=== PATIENT | male | born 1995 | race Asian ===

== ENCOUNTER 2018-03-06 19:25 | Emergency (ER) | payer MEDICAID ==
[~2018-03-06] VITALS: Ht 185.4 cm; Wt 68.0 kg
[2018-03-06 20:17] VITALS: BP 150/101
[2018-03-06] MEDS ORDERED: Acetaminophen 500mg (ES) tab ORAL ONE (20:30)
[2018-03-06] MEDS ORDERED: IBUPROFEN600 MG ORAL (20:48)
[2018-03-06 21:07] VITALS: BP 150/101
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
== END 2018-03-06 21:07 | disposition home or self-care (01) ==
LOC: EMR 19:53
DX: S00.81XA Abrasion of other part of head, initial encounter (principal); S20.319A Abrasion of unspecified front wall of thorax, initial encounter; V43.62XA Car passenger injured in collision with other type car in traffic accident, initial encounter; Y92.410 Unspecified street and highway as the place of occurrence of the external cause
CPT/HCPCS: 99282

== ENCOUNTER 2018-05-09 00:07 | Emergency (ER) | payer MEDICAID ==
[~2018-05-09] VITALS: Ht 185.4 cm; Wt 68.0 kg
[~2018-05-09 00:07] MED LIST: IBUPROFEN600 MG ORAL
[2018-05-09] MEDS ORDERED: NKM (00:18)
[2018-05-09 00:21] VITALS: BP 135/89
[2018-05-09] MEDS ORDERED: BUSPAR10 MG ORAL (00:39)
--- NOTE | 2018-05-09 00:39 | Emergency Room Report ---
History of Present Illness General Chief Complaint: Palpitations Source: Patient Present Illness HPI This a 23-year-old [place] male with no past medical history. He presents with chief complaint of palpitation. Onset was acute. He felt his heart beating fast. No chest pain. No nausea vomiting. No syncopal. This has been an on and off problem for the last 2 months. Worse when he gets stressed out. No fever chills but no drug use. No nausea no vomiting. No other complaint. Allergies: Coded Allergies: No Known Allergies (Unverified , 03/06/18) Patient History Past Medical History: none, see triage record, old chart reviewed Past Surgical History: none Pertinent Family History: none Social History: Denies: smoking Immunizations: other Reviewed Nursing Documentation: PMH: Agreed; PSxH: Agreed Nursing Documentation-PMH Past Medical History: No Stated History Review of Systems Eye: Denies: eye pain, blurred vision ENT: Denies: ear pain, nose congestion, throat swelling Respiratory: Denies: cough, shortness of breath Cardiovascular: Reports: palpitations; Denies: chest pain Gastrointestinal: Denies: abdominal pain, diarrhea, nausea, vomiting Musculoskeletal: Denies: back pain, joint pain Skin: Denies: rash Neurological: Denies: headache, numbness Endocrine: Denies: increased thirst, increased urine Hematologic/Lymphatic: Denies: easy bruising All Other Systems: negative except mentioned in HPI Physical Exam Vital Signs Date Time Temp Pulse Resp B/P (MAP) Pulse Ox O2 Delivery O2 Flow Rate FiO2 05/09/18 00:15 98.2 96 16 147/98 99 Room Air vitals with high blood pressure Sp02 EP Interpretation: reviewed, normal General Appearance: well appearing, no apparent distress, alert Head: normocephalic, atraumatic Eyes: bilateral eye PERRL, bilateral eye EOMI ENT: hearing grossly normal, normal pharynx Neck: full range of motion, supple, no meningismus Respiratory: chest non-tender, lungs clear, normal breath sounds Cardiovascular #1: regular rate, rhythm, no murmur Gastrointestinal: normal bowel sounds, non tender, no mass, no organomegaly, no bruit, non-distended Musculoskeletal: back normal, gait/station normal, normal range of motion Psychiatric: anxious Skin: warm/dry Medical Decision Making Diagnostic Impression: Primary Impression: Palpitations Additional Impression: Panic attack ER Course Patient with anxiety causing his palpitation. No evidence of ACS, PE, dissection to name a few. May need Holter monitor. We'll discharge home. EKG Diagnostic Results Rate: normal Rhythm: NSR ST Segments: no acute changes Rhythm Strip Diag. Results Rhythm Strip Time: 00:38 EP Interpretation: yes Rate: 85 Rhythm: NSR, no PVC's, no ectopy Last Vital Signs Date Time Temp Pulse Resp B/P (MAP) Pulse Ox O2 Delivery O2 Flow Rate FiO2 05/09/18 00:21 98.2 88 18 135/89 99 Room Air Status: improved Disposition: HOME, SELF-CARE Condition: Stable Scripts Buspirone Hcl* (BUSPAR*) 10 Mg Tablet 10 MG ORAL THREE TIMES A DAY, #30 TAB 0 Refills Prov: Norberto Queen MD 05/09/18 Patient Instructions: Panic Attacks Additional Instructions: Follow-up with your doctor as scheduled. You may need a Holter monitor and/or referral to see a retail operations specialist. Return if worse. Norberto Queen MD May 09, 2018 00:39
[2018-05-09] MEDS ORDERED: LORazepam 1mg tab ORAL ONE (00:45)
[2018-05-09 00:47] VITALS: BP 135/89
== END 2018-05-09 00:50 | disposition home or self-care (01) ==
LOC: EMR 00:39
DX: F41.0 Panic disorder [episodic paroxysmal anxiety] (principal); R00.2 Palpitations
CPT/HCPCS: 93005; 99283

== ENCOUNTER 2018-07-04 12:52 | Emergency (ER) | payer MEDICAID ==
[~2018-07-04] VITALS: Ht 185.4 cm; Wt 68.0 kg
[~2018-07-04 12:52] MED LIST changes: +BUSPAR10 MG ORAL; +NKM
[2018-07-04 13:11] VITALS: BP 132/87
--- NOTE | 2018-07-04 13:16 | Emergency Room Report ---
History of Present Illness General Chief Complaint: Eye Problems Source: Patient Present Illness HPI 23-year-old male with history of recurrent migraine headache here complaining of one month of photophobia and the aura on the left eye without headache. Patient went to an police manager to weeks ago and was treated with tobramycin dexamethasone eyedrops for possible infection. According to patient police manager ruled out macular degeneration and all other etiologies related to the eye. Patient was first diagnosed with migraine headache a few years ago and has not been taking any medication other than Excedrin. Patient complains of continuous photophobia and less I, and aorta however denies headache, dizziness, nausea vomiting. Patient denies any head injury. He further complains of increased sense of smell. Denies loss of consciousness, syncope, vertigo, rhinorrhea, ear pain, tinnitus, chest pain, palpitation, shortness of breath and pulmonary associates symptoms. PT also has history of anxiety however does not take any medication for anxiety denies SI and HI Allergies: Coded Allergies: No Known Allergies (Unverified , 03/06/18) Patient History Past Medical History: see triage record Past Surgical History: unable to obtain Pertinent Family History: none Immunizations: UTD Reviewed Nursing Documentation: PMH: Agreed; PSxH: Agreed Nursing Documentation-PMH Past Medical History: No Stated History Review of Systems All Other Systems: negative except mentioned in HPI Physical Exam Vital Signs Date Time Temp Pulse Resp B/P (MAP) Pulse Ox O2 Delivery O2 Flow Rate FiO2 07/04/18 12:54 98.2 99 20 144/93 99 Room Air Sp02 EP Interpretation: reviewed, normal General Appearance: normal inspection, well appearing, no apparent distress, alert, GCS 15 Head: normocephalic, atraumatic Eyes: left eye photophobia; bilateral eye normal inspection, bilateral eye PERRL ENT: normal ENT inspection, hearing grossly normal, normal pharynx, no angioedema, normal voice Neck: normal inspection, supple Respiratory: normal inspection, chest non-tender, normal breath sounds, no rhonchi, no wheezing Cardiovascular #1: normal inspection, regular rate, rhythm, no gallop Gastrointestinal: normal inspection, non tender, soft Genitourinary: no CVA tenderness Musculoskeletal: normal inspection, back normal, digits/nails normal Neurologic: normal inspection, alert, oriented x3, responsive, orthopedic specialist III-XII nml as tested Psychiatric: normal inspection, judgement/insight normal, memory normal Skin: normal inspection, normal color, no rash, warm/dry Lymphatic: normal inspection, no adenopathy Medical Decision Making PA Attestation all diagnoses and treatment plans were reviewed and discussed with my supervising physician Dr. Bolaños Diagnostic Impression: Primary Impression: Migraine aura without headache Additional Impression: Photophobia of left eye ER Course 23-year-old male with history of recurrent migraine headache here complaining of one month of photophobia and the aura on the left eye without headache. Patient went to an police manager to weeks ago and was treated with tobramycin dexamethasone eyedrops for possible infection. According to patient police manager ruled out macular degeneration and all other etiologies related to the eye. Patient was first diagnosed with migraine headache a few years ago and has not been taking any medication other than Excedrin. Patient complains of continuous photophobia and less I, and aorta however denies headache, dizziness, nausea vomiting. Patient denies any head injury. He further complains of increased sense of smell. Denies loss of consciousness, syncope, vertigo, rhinorrhea, ear pain, tinnitus, chest pain, palpitation, shortness of breath and pulmonary associates symptoms. PT also has history of anxiety however does not take any medication for anxiety denies SI and HI Ddx considered but are not limited to migraine headache with allograft without headache, head injury, macular degeneration, coma, Vital signs: are WNL, pt. is afebrile H&PE are most consistent with ointment headache without aura without headache. ORDERS: propranolol ED INTERVENTIONS: None required at this time. DISCHARGE: At this time pt. is stable for d/c to home. Will provide printed patient care instructions, and any necessary prescriptions. Care plan and follow up instructions have been discussed with the patient prior to discharge. propranolol is a daily management for recurrent migraine headaches however. Over the primary care provider for referral to a neurologist, brain MRI, and prescription of possible sumatriptan. If heart rate is less than 50 do not take propranolol. Propranolol will also help with fewer anxiety. Increased sense of smell secondary to migraine headache. Discontinue tobramycin with steroids as it may increase her photophobia Last Vital Signs Date Time Temp Pulse Resp B/P (MAP) Pulse Ox O2 Delivery O2 Flow Rate FiO2 07/04/18 12:54 98.2 99 20 144/93 99 Room Air Disposition: HOME, SELF-CARE Condition: Stable Scripts Propranolol HCl (Propranolol HCl) 80 Mg Tablet 80 MG PO DAILY, #10 TAB Prov: Sunshine Parsons 07/04/18 Patient Instructions: Photophobia, Recurrent Migraine Headache, [id number] Additional Instructions: [facility] primary care doctor referral U to a neurologist and also brain MRI to correctly diagnosed U with migraine headache, take medications as directed, since police manager consult has been done macular degeneration and other abnormalities. I have been ruled out Sunshine Parsons Jul 04, 2018 13:16
[2018-07-04] MEDS ORDERED: PROPRANOLOL HCL80 M2 PO (13:18)
[2018-07-04 13:24] VITALS: BP 132/87
--- NOTE | 2018-07-04 13:27 | NUR ---
ED Nurse Note:pt. was treated and cleared for d/c by ER PA visual acuity was done, pt. received d/c instructions with prescription and left ER with steady gait
== END 2018-07-04 13:24 | disposition home or self-care (01) ==
LOC: EMR 13:18
DX: G43.109 Migraine with aura, not intractable, without status migrainosus (principal); H53.142 Visual discomfort, left eye
CPT/HCPCS: 99282